=== PATIENT | male | born 1970 | race Caucasian/White ===

== ENCOUNTER 2016-12-04 18:14 | Emergency (ER) | payer OTHER ==
[~2016-12-04] VITALS: Ht 193 cm; Wt 84.1 kg
[2016-12-04] MEDS ORDERED: TRAZ-144 PO (18:40)
[2016-12-04] MEDS ORDERED: DULO20CA30 PO (18:40)
[2016-12-04] MEDS ORDERED: ZOLP5 PO (18:40)
[2016-12-04] MEDS ORDERED: GADOBUTROL 1 MMOL/ML 10 ML VIAL IVP ONE (19:31)
[2016-12-04 21:54] VITALS: BP 128/77
== END 2016-12-04 22:46 | disposition short-term general hospital (02) ==
LOC: EMS 18:16
DX: G91.0 Communicating hydrocephalus (principal); R51 Headache
CPT/HCPCS: 70551; 99285; A9585